=== PATIENT | male | born 1980 | race Caucasian/White ===

== ENCOUNTER 2019-09-10 14:14 | Inpatient (IN) | payer OTHER ==
[~2019-09-10] VITALS: Ht 190.5 cm; Wt 127.5 kg
[2019-09-10] MEDS ORDERED: DILTIAZEM HCL 5 MG/ML 5 ML VIAL IV STA ×3 (14:18→14:35)
[2019-09-10] MEDS ORDERED: ONDANSETRON HCL INJ 2MG/ML 2ML 2 MG/ML VIAL IV STA (14:18)
[2019-09-10] MEDS ORDERED: LORAZEPAM INJ 2 MG/ML VIAL ONE (14:22)
[2019-09-10] MEDS ORDERED: LACTATED RINGER'S 1,000 ML ONE (14:22)
[2019-09-10] MEDS ORDERED: LACTATED RINGER'S 1,000 ML IV ONE ×2 (14:30)
[2019-09-10] MEDS ORDERED: DILTIAZEM HCL 5 MG/ML 5 ML VIAL IV ONE (14:30)
[2019-09-10] MEDS ORDERED: LORAZEPAM INJ 2 MG/ML VIAL IV ONE ×4 (14:30→17:30)
[2019-09-10 14:53] LABS: INR 1.06; PROTHROMBIN TIME 14.3 seconds (11.9-14.5)
[2019-09-10 14:55] LABS: BILIRUBIN,URINE NEGATIVE (NEGATIVE); CLARITY,URINE CLEAR (CLEAR); COLOR,URINE YELLOW (YELLOW); KETONES,URINE NEGATIVE (NEGATIVE); LEUKOCYTE ESTERASE ,URINE NEGATIVE (NEGATIVE); NITRITE,URINE NEGATIVE (NEGATIVE); PROTEIN,URINE DIPSTICK 2+ (NEGATIVE); URINE UROBILINOGEN 0.2 mg/dL (0.2 - 1)
[2019-09-10] MEDS ORDERED: MULTIVITAMINS- 12 INJECTION 10 ML, FOLIC ACID MDV 5 MG, THIAMINE HCL INJ 100 MG in SODI... IV ONE (15:00)
[2019-09-10 15:02] LABS: ALANINE AMINOTRANSFERASE 62 IU/L (0-55); ALBUMIN 4.2 g/dL (3.5-5.0); ALKALINE PHOSPHATASE 75 IU/L (40-150); ANION GAP 27.2 mmol/L (8-16); BLOOD UREA NITROGEN 8 mg/dL (7-26); BUN/CREATININE RATIO 8 (6-25); CALCIUM 9.5 mg/dL (8.4-10.2); CARBON DIOXIDE 15 mmol/L (22-29); CHLORIDE 97 mmol/L (98-107); CREATININE, SERUM 0.95 mg/dL (0.72-1.25); EST GLOMERULAR FILTRATION RATE > 60 ML/MIN (60-); GLUCOSE 112 mg/dL (74-118); POTASSIUM 3.2 mmol/L (3.5-5.1); SODIUM 136 mmol/L (136-145)
[2019-09-10 15:03] LABS: BASOPHILS # (AUTO) 0.1 (0.0-0.1); BASOPHILS % 0.7 % (0.0-1.0); EOSINOPHILS # (AUTO) 0.1 (0.0-0.4); EOSINOPHILS % 0.7 % (0.0-6.0); HEMATOCRIT 47.1 % (38.2-49.6); HEMOGLOBIN 16.2 g/dL (14.0-18.0); LYMPHOCYTES # (AUTO) 3.9 (1.0-3.2); LYMPHOCYTES % 45.5 % (18.0-39.1); MEAN CORPUSCULAR HEMOGLOBIN 31.5 pg (28-32); MEAN CORPUSCULAR HGB CONC 34.4 g/dL (31-35); MEAN CORPUSCULAR VOLUME 91.5 fL (81-99); MONOCYTES # (AUTO) 1.2 (0.2-0.8); MONOCYTES % 14.3 % (4.4-11.3); NEUTROPHILS # (AUTO) 3.3 (2.1-6.9); NEUTROPHILS % 38.6 % (38.7-80.0); PLATELET COUNT 157 x10e3/uL (140-360); RED BLOOD COUNT 5.15 x10e6/uL (4.3-5.7); RED CELL DISTRIBUTION WIDTH 11.7 % (11.7-14.4)
[2019-09-10 15:14] LABS: BACTERIA,URINE FEW /HPF; EPITHELIAL CELLS,URINE FEW /LPF; RBC,URINE 0-5 /HPF (0-5); WBC,URINE (MAN) 0-5 /HPF (0-5)
--- NOTE | 2019-09-10 15:19 | Diagnostic Imaging Report ---
EXAMINATION: CHEST SINGLE (PORTABLE) COMPARISON: None INDICATION: Seizure ^AMS ^[id number] ^1455 ^Y DISCUSSION: Frontal view of the chest obtained at 1454 hours. HEART AND MEDIASTINUM: The cardiomediastinal silhouette is unremarkable. LINES: None. LUNGS: The lungs are well inflated and clear. No pneumonia or pulmonary edema. PLEURA: No pleural effusion or pneumothorax. BONES AND SOFT TISSUES: No focal osseous lesion. The soft tissues are normal. IMPRESSION: No acute cardiopulmonary disease. Signed by: Dr. Dharmesh Johnson MD on 09/10/2019 3:16 PM
[2019-09-10 15:21] LABS: THYROID STIMULATING HORMONE 2.042 uIU/mL (0.350-4.940)
--- NOTE | 2019-09-10 15:44 | Diagnostic Imaging Report ---
CT BRAIN WO HISTORY: 38-year-old male with altered mental status, tachycardia and suspected seizure episode COMPARISON: None. TECHNIQUE: Noncontrast axial scans were obtained from skull base to the vertex. Coronal and sagittal reconstructions obtained from the axial data. One or more of the following dose reduction techniques were used: Automated exposure control, adjustment of the mA and/or kV according to patient size, and/or utilization of iterative reconstruction technique. DISCUSSION: Scalp/Skull: Unremarkable. Brain sulci: Mild compensatory dilatation. Ventricles: Mild compensatory dilatation.. No hydrocephalus. Extra-axial spaces: No masses or fluid collections. Parenchyma: No abnormal densities. Mild generalized volume loss. No mass, hemorrhage, or large vascular territory acute infarct. Dural sinuses: No abnormal densities. Sellar/Suprasellar region: Intact. No masses. Skull base: Intact. Craniocervical junction: The vermis is hypoplastic in appearance with associated increased prominence of the posterior fossa at midline. Incidental findings: None. IMPRESSION: 1. No acute intracranial abnormalities. 2. Mild generalized volume loss. This preliminary report was issued by Dr. Salvador Perkins M.D. neuroradiology fellow at 1541 hours on 09/10/2019. Signed by: DR Darwin Mills M.D. on 09/11/2019 2:56 PM
[2019-09-10] MEDS: DILTIAZEM HCL 125 ML IV SCH (16:15)
[2019-09-10] MEDS ORDERED: SODIUM CHLORIDE 0.9% 1000ML 1,000 ML IV SCH (16:16)
--- OUTSIDE RECORDS SUMMARY | 2019-09-10 16:29 | XMS REPORT ---
Author Author [facility] Address Unknown Phone Unavailable Care Team Providers Care Curing Finisher Name Role Phone Freedom TRAYLOR Unavailable Unavailable Problems This patient has no known problems. Allergies, Adverse Reactions, Alerts This patient has no known allergies or adverse reactions. Medications This patient has no known medications. Results Test Description Test Time Test Comments Text Results Atomic Results Result Comments CHEST SINGLE (PORTABLE) 2019-09-10 15:15:00 [place] [address] Patient Name: ED WRIGHT MR #: [id number] : 1980 Age/Sex: 38/M Req #: [id number] Adm Physician: Ordered by: PAUL TRAYLOR MD Report #: [id number] Location: ER Room/Bed: Procedure: [id number] DX/CHEST SINGLE (PORTABLE) Exam Date: 09/10/19 Exam Time: 1455 REPORT STATUS: Signed EXAMINATION: CHEST SINGLE (PORTABLE) COMPAR TONJA: None INDICATION: Seizure AMS [id number] Y DISCUSSION: Frontal view of the chest obtained at 1454 hours. HEART AND MEDIASTINUM: The cardiomediastinal silhouette is unremarkable. LINES: None. LUNGS: The lungs are well inflated and clear. No pneumonia or pulmonary edema. PLEURA: No pleural effusion or pneumothorax. BONES AND SOFT TISSUES: No focal osseous lesion. The soft tissues are normal. IMPRESSION: No acute cardiopulmonary disease. Signed by: Dr. Valerie Johnson MD on 09/10/2019 3:16 PM Dictated By: VALERIE JOHNSON MD 15 Transcribed By: LAKHWINDER on 09/10/191515 COPY TO: PAUL TRAYLOR MD
[2019-09-10] MEDS ORDERED: ONDANSETRON HCL INJ 2MG/ML 2ML 2 MG/ML VIAL IV PRN (16:30)
[2019-09-10] MEDS ORDERED: POTASSIUM CHLORIDE 10MEQ EA PO ONE (17:00)
[2019-09-10] MEDS ORDERED: FOSPHENYTOIN 1,000 MG in SODIUM CHLORIDE 0.9% 50ML 50 ML IV ONE (17:00)
[2019-09-10] MEDS ORDERED: POTASSIUM CHLORIDE 20 MEQ TAB CR PO ONE (17:00)
[2019-09-10 17:20] VITALS: BP 135/102
[2019-09-10] MEDS: SOD CHL 0.45%/POT CHL 20MEQ 1,000 ML IV SCH (18:27)
[2019-09-10] MEDS ORDERED: DIGOXIN INJ 0.25 MG/ML 2 ML AMP IV ONE (18:30)
--- NOTE | 2019-09-10 18:58 | Consultation ---
DATE OF CONSULTATION: Pulmonary Critical Care Consultation CHIEF COMPLAINT: Tachycardia and agitation. HISTORY OF PRESENT ILLNESS: The patient is a 38-year-old man. He has a history of prior seizures. He also has a history of atrial fibrillation and prior alcohol withdrawal. Apparently, he has been drinking more than usual and had a seizure at the baseball game today. He came to the ER and was found to be tachycardic with atrial fibrillation. He was started on a diltiazem drip. He also received Ativan total of 12 mg. He was loaded with Dilantin as well. Head CT scan showed no acute abnormalities. The patient is now transferred to the intensive care unit. He is on a Cardizem drip and is anxious, but is oriented and coherent. PAST MEDICAL HISTORY: 1. Seizures. 2. History of alcohol withdrawal. 3. Atrial fibrillation. 4. No prior respiratory problems. PAST SURGICAL HISTORY: None. FAMILY HISTORY: Family history is noncontributory. ALLERGIES: THE PATIENT HAS NO KNOWN DRUG ALLERGIES. REVIEW OF SYSTEMS: There is no headache. He has no fevers. He is not having neck pain. There is no chest pain. He did note some tachycardia and palpitations. He notes some mild dyspnea. There is no abdominal pain. He has no nausea or vomiting. There is no leg edema. PHYSICAL EXAMINATION: VITAL SIGNS: The blood pressure is 147/89, saturation is 98%, and respiratory rate is 18. The heart rate is now 110-120, it is irregularly irregular. HEENT: Shows no facial swelling or erythema. CARDIAC: Reveals regular rate and rhythm with normal S1, S2. There are no murmurs or rubs. LUNGS: Auscultation of the lungs shows clear breath sounds bilaterally. There is no wheezing. ABDOMEN: Soft, nontender. There is no rebound or guarding. EXTREMITIES: Show no leg edema or calf tenderness. There is no cyanosis or clubbing. SKIN: Shows no rashes. NEUROLOGICAL: Shows no focal abnormalities. LABORATORY DATA: BUN to creatinine ratio is normal. Potassium is 3.2 and the carbon dioxide is 15. AST is 93 and the ALT is 62. Magnesium is 1.9. CBC is within normal limits. RADIOGRAPHIC DATA: CT scan of the head shows no acute changes. Chest x-ray shows no acute changes. IMPRESSION: 1. Alcohol withdrawal and impending delirium tremens. 2. Seizure disorder. 3. Hypokalemia. 4. Metabolic acidosis secondary to seizure. 5. Alcoholic hepatitis with elevated transaminases. 6. Atrial fibrillation. PLAN: 1. Continue Ativan as needed to control agitation and alcohol withdrawal. 2. Continue Cardizem drip. 3. Echocardiogram is pending. 4. The patient has been loaded with Dilantin. 5. Replete potassium. 6. Add thiamine and multivitamins. 7. Repeat electrolytes. Tripp Hussein MD [facility]/MODL /[id number]
[2019-09-10 19:00] VITALS: BP 140/85
[2019-09-10 19:45] LABS: ALANINE AMINOTRANSFERASE 55 IU/L (0-55); ALBUMIN 3.7 g/dL (3.5-5.0); ALKALINE PHOSPHATASE 65 IU/L (40-150); ANION GAP 13.4 mmol/L (8-16); BLOOD UREA NITROGEN 8 mg/dL (7-26); BUN/CREATININE RATIO 11 (6-25); CALCIUM 8.8 mg/dL (8.4-10.2); CARBON DIOXIDE 25 mmol/L (22-29); CHLORIDE 100 mmol/L (98-107); CREATININE, SERUM 0.76 mg/dL (0.72-1.25); EST GLOMERULAR FILTRATION RATE > 60 ML/MIN (60-); GLUCOSE 117 mg/dL (74-118); POTASSIUM 3.4 mmol/L (3.5-5.1); SODIUM 135 mmol/L (136-145)
[2019-09-10 20:00] VITALS: BP 150/133
[2019-09-10 21:00] VITALS: BP 142/91
[2019-09-10] MEDS: METOPROLOL TARTRATE 25 MG TAB PO SCH (21:04)
[2019-09-10 22:00] VITALS: BP 137/76
[2019-09-10 23:02] VITALS: BP 120/84
[2019-09-10] MEDS: LORAZEPAM 1 MG TAB PO SCH (23:21)
[2019-09-11] VITALS (27 sets, daily range): BP systolic 121–158; BP diastolic 83–118
[2019-09-11] MEDS ORDERED: SODIUM CHLORIDE 0.9% 100 ML ONE (04:12)
[2019-09-11] MEDS ORDERED: DILTIAZEM HCL VIAL 0 ML ONE (04:13)
[2019-09-11] MEDS ORDERED: DILTIAZEM HCL IV 5MG/ML 25 ML VIAL ONE (04:14)
[2019-09-11] MEDS: SOD CHL 0.45%/POT CHL 20MEQ 1,000 ML IV SCH ×2 (04:31→16:20)
[2019-09-11] MEDS: DILTIAZEM HCL 125 ML IV SCH ×5 (04:32→23:50)
[2019-09-11 04:58] LABS: BASOPHILS % 0.5 % (0.0-1.0); EOSINOPHILS % 0.7 % (0.0-6.0); HEMATOCRIT 45.4 % (38.2-49.6); LYMPHOCYTES # (AUTO) 1.4 (1.0-3.2); LYMPHOCYTES % 25.5 % (18.0-39.1); MEAN CORPUSCULAR HEMOGLOBIN 30.9 pg (28-32); MEAN CORPUSCULAR VOLUME 93.6 fL (81-99); MONOCYTES # (AUTO) 0.8 (0.2-0.8); MONOCYTES % 14.2 % (4.4-11.3); NEUTROPHILS # (AUTO) 3.2 (2.1-6.9); NEUTROPHILS % 58.7 % (38.7-80.0); PLATELET COUNT 119 x10e3/uL (140-360); RED BLOOD COUNT 4.85 x10e6/uL (4.3-5.7); RED CELL DISTRIBUTION WIDTH 11.9 % (11.7-14.4)
[2019-09-11 05:18] LABS: ANION GAP 15.8 mmol/L (8-16); BLOOD UREA NITROGEN 9 mg/dL (7-26); BUN/CREATININE RATIO 11 (6-25); CALCIUM 8.8 mg/dL (8.4-10.2); CARBON DIOXIDE 23 mmol/L (22-29); CHLORIDE 102 mmol/L (98-107); CREATININE, SERUM 0.81 mg/dL (0.72-1.25); EST GLOMERULAR FILTRATION RATE > 60 ML/MIN (60-); GLUCOSE 116 mg/dL (74-118); POTASSIUM 3.8 mmol/L (3.5-5.1); SODIUM 137 mmol/L (136-145)
[2019-09-11 06:46] LABS: PLATELET MORPHOLOGY COMMENT FEW LARGE
[2019-09-11] MEDS: LORAZEPAM 1 MG TAB PO SCH ×2 (08:10→20:02)
[2019-09-11] MEDS: METOPROLOL TARTRATE 25 MG TAB PO SCH ×2 (08:11→20:02)
[2019-09-11] MEDS: LORAZEPAM INJ 2 MG/ML VIAL IV PRN ×2 (08:24→15:30)
--- NOTE | 2019-09-11 08:50 | Progress Note ---
DATE: SUBJECTIVE: The patient has less agitation, but still has atrial fibrillation. He is still requiring Cardizem at 10 mg an hour. PHYSICAL EXAMINATION: VITAL SIGNS: The patient is afebrile. The blood pressure is 148/105, and the heart rate is 115. Respiratory rate is 22. HEENT: Shows no facial swelling or erythema. CARDIAC: Reveals an irregularly irregular rhythm with normal S1, S2. There are no murmurs or rubs heard. ABDOMEN: Soft, nontender. There is no rebound or guarding. There is no leg edema or calf tenderness. IMPRESSION: 1. Alcohol withdrawal and impending delirium tremens. 2. Atrial fibrillation with a rapid ventricular response. 3. Elevated transaminases, probably secondary to alcoholic hepatitis. PLAN: 1. Continue Ativan. 2. Continue Cardizem. 3. Cardiology evaluation. 4. Continue IV fluids. MD CIARAN Valentin/CHAZ /[id number]
[2019-09-11] MEDS: LISINOPRIL 2.5 MG TAB PO SCH (18:20)
[2019-09-11] MEDS: ENOXAPARIN SODIUM INJ 100 MG/ML SYR SC SCH (18:20)
--- NOTE | 2019-09-11 20:40 | Consultation ---
DATE OF CONSULTATION: 09/11/2019 Neurology Consult Note HISTORY OF PRESENT ILLNESS: Mr. Quintero is a 38-year-old right-hand dominant man with past medical history significant for atrial fibrillation, alcohol abuse, and prior seizures related to alcohol withdrawal, admitted to [facility] as an inpatient on September 10, 2019, following a single seizure and with alcohol withdrawal. On the day of admission, the patient experienced a seizure, which is described as follows: Mr. Quintero suddenly fell to the ground, unresponsive. He then developed generalized tonic-clonic activity with tongue biting. There was no bowel or bladder incontinence noted. The generalized tonic-clonic activity persisted for approximately one minute. This was followed by a postictal phase, which lasted for some minutes. Mr. Quintero has experienced generalized tonic-clonic seizures in the past (once in January 2018 and again in January 2019). Both seizures were attributed to alcohol withdrawal. Mr. Quintero reports drinking 24 to 36 ounce of beers per day for the past 9 years. Approximately one month ago, this was decreased to 6 to 9, 24 to 36 ounce of beers per day. Approximately 2 weeks ago, the patient's alcohol consumption was further decreased to 3, 24 to 36 ounce beers per day. On the day of admission, when the generalized seizure occurred, the patient had consumed only one beer approximately 30 to 40 minutes prior to the seizure. Mr. Quintero does not report a history of febrile seizures. There is no known family history of epilepsy. The patient does not report prior head trauma or meningitis/encephalitis. For each of his prior seizures, Mr. Quintero was hospitalized and underwent MRIs of the brain as well as EEGs. All studies were reportedly normal. REVIEW OF SYSTEMS: Confusion, seizures, agitation, tremulousness, and diaphoresis. Otherwise, a 12-point review of systems is negative. PAST MEDICAL HISTORY: Hypertension, atrial fibrillation, alcohol withdrawal seizures, and alcohol abuse. PAST SURGICAL HISTORY: None. PAST HOSPITALIZATIONS: Seizures/alcohol withdrawal. FAMILY MEDICAL HISTORY: Hypertension, diabetes mellitus, and depression. SOCIAL HISTORY: Mr. Quintero is . 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 Mr. Quintero's alcohol use is detailed in the history of present illness. The patient does not report current or prior recreational drug use. HOME MEDICATIONS: None. HOSPITAL MEDICATIONS: Diltiazem, Lovenox, lisinopril, Ativan, Lopressor, Zofran, and potassium chloride. ALLERGIES: NO KNOWN DRUG ALLERGIES. NO KNOWN FOOD ALLERGIES. NO KNOWN ALLERGIES TO LATEX. NO KNOWN ALLERGIES TO IODINE OR OTHER CONTRAST MATERIALS. PHYSICAL EXAMINATION: Vital Signs: Height 75 inches, weight 283 pounds, BMI 35.4 kg/m2, blood pressure 122/100 mmHg, pulse 130 beats per minute, respiratory rate 19 breaths per minute, and oxygen saturation 95% on 4 L by nasal cannula. GENERAL: The patient is awake and alert, diaphoretic, agitated. Obese. HEENT: Normocephalic and atraumatic. Pupils are equal, round, and sluggishly reactive to light. Moist mucous membranes. NECK: Supple. No appreciable thyromegaly. No appreciable carotid bruits. CARDIOVASCULAR: S1 and S2. Tachycardic. Irregular rhythm. No murmurs, rubs, or gallops. RESPIRATORY: Clear to auscultation bilaterally. No wheezes, rhonchi, or rales. EXTREMITIES: The skin is warm and dry. No clubbing, cyanosis, or edema. The posterior tibial and dorsalis pedis pulses are 2+ and symmetric. SKIN: The patient has a macular papular, slightly scaly rash affecting both legs. NEUROLOGIC: Memory/Attention: The patient is awake and alert, oriented to person, place, time, and situation. Cranial Nerves: Cranial nerve I - not tested. Cranial nerve II, III, IV, and - pupils are equal and round, react sluggishly to light (from 6 mm to 4 mm). Extraocular movements intact. No nystagmus. Cranial nerve V - sensation to light touch and pinprick is intact in the bilateral V1 through V3 distributions. Strength of the temporalis and masseter muscles is within normal limits. Cranial nerve VII - the face is symmetric as are all facial movements. Strength is within normal limits. Cranial nerve VIII - hearing is intact to finger rub bilaterally. Cranial nerve IX, X - the soft palate elevates equally and symmetrically. Cranial nerve XI - normal strength of the bilateral sternocleidomastoid and trapezius muscles. Cranial nerve XII - the tongue protrudes midline and moves symmetrically from [id number]. Strength: Bulk is normal. Strength is 5/5 in the bilateral deltoids, biceps, triceps, wrist flexors and extensors, finger flexors and extensors, intrinsic hand muscles, hip flexors, knee flexors and extensors, ankle dorsiflexion and plantar flexion, and intrinsic foot muscles. Tone is normal. DTRs: Deep tendon reflexes are 1+ and symmetric at the triceps, biceps, brachioradialis, and patellas. Deep tendon reflexes are absent and symmetric at the Achilles. Plantar responses are flexor bilaterally. Sensation: Sensation is intact to light touch and pinprick in both arms and both legs. Cerebellar: [id number] and heel-hamilton movements are significant for tremulousness. Gait: Deferred. Speech: Spontaneous speech is normal without appreciable dysarthria or aphasia. Repetition is intact. Involuntary movements: The patient appears tremulous. Pronator Drift: None. LABORATORY DATA: The most recent comprehensive metabolic panel is unremarkable. A liver function panel collected on September 10, 2019, is significant for a total bilirubin of 1.6, AST of 85, and globulin of 3.8. TSH 2.042. The CBC with differential and platelets reveals a white blood cell count of 5.48 with 58.7% neutrophils, 25.5% lymphocytes, 14.2% monocytes, 0.7% eosinophils, and 0.5% basophils. The hemoglobin and hematocrit are 15.0 and 45.4, respectively. The platelet count is 119. A coagulation profile is within normal limits. A urinalysis collected on September 10, 2019, was significant only for 2+ protein. DIAGNOSTIC STUDIES: Electrocardiogram 09/10/2019: Atrial fibrillation with rapid ventricular response at 166 beats per minute. Right axis deviation. Chest x- ray 09/10/2019: No acute cardiopulmonary disease. CT of the brain without contrast 09/10/2019: On my review, there is no evidence of recent or remote large territorial ischemia, hemorrhage, mass, or mass effect. There is mild diffuse cerebral atrophy with compensatory dilatation of the ventricles, more than expected for the patient's age. There is no evidence of migrational anomalies, cortical dysplasia, or mesial temporal sclerosis. There are no findings suggestive of chronic small vessel ischemic disease. Echocardiogram 09/10/2019: Ejection fraction 35% to 40%. Concentric left ventricular hypertrophy. Left ventricular enlargement. ASSESSMENT AND PLAN: Mr. Quintero is a 38-year-old right-hand dominant man with past medical history significant for alcoholism and prior seizures secondary to alcohol withdrawal, admitted to [facility] as an inpatient on 09/10/2019, status post a single generalized tonic-clonic seizure, atrial fibrillation with rapid ventricular response, and delirium tremens. Other than findings compatible with a diagnosis of delirium tremens, the patient's neurological examination is nonfocal. His laboratory data and other diagnostic studies have been reviewed and are documented above. Mr. Quintero's CT of the brain without contrast did not reveal a structural abnormality, which would predispose the patient towards seizures. Unfortunately, an EEG cannot be obtained, as the EEG machine is currently not operational. However, in my opinion, it is highly likely Mr. Quintero's recent generalized tonic-clonic seizure occurred as a result of alcohol withdrawal. Therefore, treatment with an antiepileptic medication is not indicated. Seizure precautions were discussed with the patient and his in the presence of the patient's nurse, Karissa Lopez RN. Those precautions are as follows: The patient should sleep 7 to 8 hours per night. No alcohol consumption. Avoid the use of stimulants and other medications/substances known to lower the seizure threshold. The patient should exercise caution in his activities. He should not bathe alone, swim alone, climb up or down ladders, or work at any height above ground. By [place] State Law, Mr. Quintero should not drive until he is seizure-free for 3 months.The patient was informed it is his responsibility to report his seizure to the Department of Public Safety. Defer treatment of the remaining medical comorbidities to the primary and other services following the patient. Thank you for this consultation. There are no other recommendations from the Neurology Service at this time. Please call again with any questions or concerns. TIME SPENT: 70 minutes. Octavia Banks MD [facility]/CHAZ /[id number] VASU
[2019-09-12] VITALS (23 sets, daily range): BP systolic 126–166; BP diastolic 80–123
--- NOTE | 2019-09-12 00:10 | Consultation ---
DATE OF CONSULTATION: 09/11/2019 Cardiology Consultation Thank you, Dr. Hussein for this cardiac consultation. I was asked to see this patient because the patient got atrial fibrillation. ADDITIONAL ADMITTING PHYSICIAN: DIAGNOSES: 1. Chronic atrial fibrillation with a rapid ventricular response. The patient has stopped all his medications. 2. Chronic alcoholism, now also the patient in the effect of alcohol. 3. Abnormal liver functions. 4. Obesity. Mr. Leon Argueta is a 38-year-old, obese gentleman admitted, what appears palpitation and also he knows that he drinks too much alcohol. He is drinking for more than 10 years and that is also one of the reason he is in the hospital. The patient is admission to different hospital in the past for atrial fibrillation and chronic alcoholism. The patient does not complain of chest pain or breathing problem at this time. The patient already started by Dr. Hussein on Cardizem and metoprolol. Heart is more or less come down to 110 per minute, but we will continue Cardizem 10 mg/hour. Blood pressure 110/80. The patient has no history of myocardial infarction or type 2 diabetes mellitus. Management. The patient is and has grown children. No surgeries. No allergies. Clinically, no evidence of acute congestive heart failure. The patient has 2+ pedal edema. Some varicose veins are noted in both the legs. EKG showed atrial fibrillation, nonspecific ST changes. Renal function is normal. Hemoglobin is normal. Platelets normal. At this time, we will continue metoprolol and Cardizem. Metoprolol p.o. and Cardizem IV fusion, add lisinopril 2.5 mg once a day and I am going to add Lovenox 1 mg/kg for 12 hours. Keep a watch on for any bleeding. The patient has no history of peptic ulcer disease or hemorrhoids. No GI bleed in the past. The patient's echocardiogram showed ejection fraction of 25%. No evidence of any pericardial effusion. The patient got mild to moderate LVH noted. At this time, I will continue to follow the patient. The patient is quite stable. Thank you again for this consultation. Prasanth Masters MD [facility]/MODL /[id number] MTDD
[2019-09-12] MEDS: SOD CHL 0.45%/POT CHL 20MEQ 1,000 ML IV SCH (02:00)
[2019-09-12 04:54] LABS: BASOPHILS % 0.4 % (0.0-1.0); EOSINOPHILS % 0.5 % (0.0-6.0); HEMATOCRIT 45.8 % (38.2-49.6); HEMOGLOBIN 15.9 g/dL (14.0-18.0); LYMPHOCYTES # (AUTO) 2.1 (1.0-3.2); LYMPHOCYTES % 24.4 % (18.0-39.1); MEAN CORPUSCULAR HEMOGLOBIN 31.9 pg (28-32); MEAN CORPUSCULAR HGB CONC 34.7 g/dL (31-35); MONOCYTES # (AUTO) 1.3 (0.2-0.8); MONOCYTES % 15.3 % (4.4-11.3); NEUTROPHILS % 58.9 % (38.7-80.0); PLATELET COUNT 124 x10e3/uL (140-360); RED BLOOD COUNT 4.98 x10e6/uL (4.3-5.7); RED CELL DISTRIBUTION WIDTH 11.7 % (11.7-14.4)
[2019-09-12 05:16] LABS: ALANINE AMINOTRANSFERASE 55 IU/L (0-55); ALBUMIN 3.8 g/dL (3.5-5.0); ALKALINE PHOSPHATASE 74 IU/L (40-150); ANION GAP 15.5 mmol/L (8-16); BLOOD UREA NITROGEN 9 mg/dL (7-26); BUN/CREATININE RATIO 11 (6-25); CALCIUM 9.3 mg/dL (8.4-10.2); CARBON DIOXIDE 23 mmol/L (22-29); CHLORIDE 96 mmol/L (98-107); CREATININE, SERUM 0.83 mg/dL (0.72-1.25); EST GLOMERULAR FILTRATION RATE > 60 ML/MIN (60-); GLUCOSE 96 mg/dL (74-118); POTASSIUM 3.5 mmol/L (3.5-5.1); SODIUM 131 mmol/L (136-145)
[2019-09-12] MEDS: ENOXAPARIN SODIUM INJ 100 MG/ML SYR SC SCH ×2 (05:40→18:00)
[2019-09-12 05:50] LABS: PLATELET ESTIMATE MODERATELY DECREASED
[2019-09-12 06:12] LABS: PLATELET MORPHOLOGY COMMENT FEW LARGE
[2019-09-12] MEDS: LORAZEPAM 1 MG TAB PO SCH ×2 (08:17→21:06)
[2019-09-12] MEDS: METOPROLOL TARTRATE 25 MG TAB PO SCH ×2 (08:18→21:06)
[2019-09-12] MEDS: LISINOPRIL 2.5 MG TAB PO SCH (08:18)
[2019-09-12] MEDS ORDERED: LYRICA75 MG PO (10:26)
[2019-09-12] MEDS ORDERED: CHLORDIAZEPOXID25 MG PO (10:32)
[2019-09-12] MEDS ORDERED: VIAGRA100 MG PO (10:32)
[2019-09-12] MEDS ORDERED: METOPROLOL TART50 MG PO (10:32)
[2019-09-12] MEDS ORDERED: CYMBALTA60 MG PO (10:32)
[2019-09-12] MEDS ORDERED: BUPROPION HCL150 M2 PO (10:35)
[2019-09-12] MEDS ORDERED: LEVOCETIRIZINE D5 MG PO (10:35)
[2019-09-12] MEDS: AMIODARONE HCL 200 MG TAB PO SCH (15:05)
--- NOTE | 2019-09-12 15:50 | Progress Note ---
DATE: SUBJECTIVE: The patient's IV came out. He was evaluated by Cardiology and found to have some decreased ejection fraction on his echo. He remains in atrial fibrillation with a rapid ventricular rate. PHYSICAL EXAMINATION: VITAL SIGNS: The blood pressure is 134/88 and pulse is 126. Saturation is 97%. HEENT: Shows no facial swelling or erythema. CARDIAC: Reveals an irregularly irregular rhythm with normal S1 and S2. LUNGS: Auscultation of lungs reveals clear breath sounds bilaterally. There is no wheezing. ABDOMEN: Soft and nontender. There is no rebound or guarding. EXTREMITIES: Shows no leg edema. IMPRESSION: 1. Alcohol withdrawal with impending delirium tremens. 2. Atrial fibrillation with rapid ventricular response. 3. Alcoholic hepatitis. 4. Seizure disorder. 5. Systolic congestive heart failure. 6. Systolic cardiomyopathy. PLAN: 1. Stop IV fluids. 2. Continue Cardizem IV. 3. Increase metoprolol to 50 mg b.i.d. and begin amiodarone for rate control. 4. Continue to monitor liver function tests. 5. Benzodiazepines as needed. MD CIARAN Valentin/CHAZ /[id number]
[2019-09-13] VITALS (11 sets, daily range): BP systolic 117–155; BP diastolic 69–109
[2019-09-13] MEDS: ENOXAPARIN SODIUM INJ 100 MG/ML SYR SC SCH (05:07)
[2019-09-13 05:23] LABS: BASOPHILS % 0.4 % (0.0-1.0); EOSINOPHILS # (AUTO) 0.1 (0.0-0.4); HEMATOCRIT 48.2 % (38.2-49.6); HEMOGLOBIN 16.3 g/dL (14.0-18.0); LYMPHOCYTES # (AUTO) 1.9 (1.0-3.2); LYMPHOCYTES % 24.8 % (18.0-39.1); MEAN CORPUSCULAR HEMOGLOBIN 31.6 pg (28-32); MEAN CORPUSCULAR HGB CONC 33.8 g/dL (31-35); MEAN CORPUSCULAR VOLUME 93.4 fL (81-99); MONOCYTES # (AUTO) 1.4 (0.2-0.8); MONOCYTES % 17.8 % (4.4-11.3); NEUTROPHILS # (AUTO) 4.3 (2.1-6.9); NEUTROPHILS % 55.6 % (38.7-80.0); PLATELET COUNT 136 x10e3/uL (140-360); RED BLOOD COUNT 5.16 x10e6/uL (4.3-5.7); RED CELL DISTRIBUTION WIDTH 11.6 % (11.7-14.4)
[2019-09-13 05:46] LABS: ALANINE AMINOTRANSFERASE 46 IU/L (0-55); ALBUMIN 3.9 g/dL (3.5-5.0); ALKALINE PHOSPHATASE 77 IU/L (40-150); ANION GAP 16.7 mmol/L (8-16); BLOOD UREA NITROGEN 14 mg/dL (7-26); BUN/CREATININE RATIO 14 (6-25); CALCIUM 9.7 mg/dL (8.4-10.2); CARBON DIOXIDE 23 mmol/L (22-29); CHLORIDE 99 mmol/L (98-107); CREATININE, SERUM 1.01 mg/dL (0.72-1.25); EST GLOMERULAR FILTRATION RATE > 60 ML/MIN (60-); GLUCOSE 92 mg/dL (74-118); POTASSIUM 3.7 mmol/L (3.5-5.1); SODIUM 135 mmol/L (136-145)
[2019-09-13 07:36] LABS: PLATELET ESTIMATE SLIGHTLY DECREASED; PLATELET MORPHOLOGY COMMENT FEW LARGE; RBC MORPHOLOGY COMMENT NORMAL
[2019-09-13] MEDS ORDERED: POTASSIUM CHLORIDE 20 MEQ TAB CR PO SCH (09:00)
[2019-09-13] MEDS: LISINOPRIL 2.5 MG TAB PO SCH (09:00)
[2019-09-13] MEDS: AMIODARONE HCL 200 MG TAB PO SCH (09:00)
[2019-09-13] MEDS: LORAZEPAM 1 MG TAB PO SCH (09:00)
[2019-09-13] MEDS: METOPROLOL TARTRATE 25 MG TAB PO SCH (09:00)
--- NOTE | 2019-09-13 12:46 | Progress Note ---
DATE: SUBJECTIVE: The patient feels better. He has less agitation and less nervousness. He is still in atrial fibrillation and has a rate of 100-110, on amiodarone twice a day and metoprolol. PHYSICAL EXAMINATION: VITAL SIGNS: The patient is afebrile. Vital signs are stable except for a fast heart rate. HEART: There is an irregularly irregular rhythm. There is a normal S1 and S2. There are no murmurs or rubs heard. PULMONARY: Auscultation of lungs show clear breath sounds bilaterally. There is no wheezing. ABDOMEN: Soft and nontender. There is no rebound or guarding. IMPRESSION: 1. Atrial fibrillation with rapid ventricular response. 2. Systolic cardiomyopathy. 3. Alcoholic hepatitis. 4. Thrombocytopenia. 5. Seizure disorder. PLAN: 1. Continue oral metoprolol and amiodarone. 2. Discuss further management with Cardiology. 3. Continue Ativan 1 mg twice a day. MD CIARAN Valentin/CHAZ /[id number]
--- NOTE | 2019-09-13 15:16 | Progress Note ---
DATE: Cardiology Progress Note SUBJECTIVE: The patient is seen in the room. The patient is awake and alert. The patient will go home today. I discussed with Dr. Hussein also. DIAGNOSES: 1. Chronic alcoholism. 2. Congestive heart failure and cardiomyopathy. 3. History of seizure disorder. 4. Obesity. At this time, the patient came with shortness of breath. The patient treated by Dr. Hussein and primary physician for heart failure. The patient had echo, EF is low less than 30% and the patient was told of his condition. The patient also had atrial fibrillation at this time. The patient converted to sinus rhythm intermittently. The patient is to go home on Eliquis 2.5 mg p.o. b.i.d., Cardizem, lisinopril 5 mg once a day, and metoprolol 25 mg p.o. b.i.d. and the patient need to continue all medications given by primary physician, Dr. Hussein. I told him he has to follow up with Dr. Hussein's office, primary physician and from a cardiac point with my office too. I discussed with him future course of his cardiomyopathy and also he is to abstain from drinking alcohol and stop it and also he has to lose weight. I discussed with him about the prevention of the cardiac failure and also heart disease and he said he will come and follow up in my office next week. Thank you, Dr. Hussein for this consultation. MD BASILIO Rodriguez/CHAZ /[id number]
--- NOTE | 2019-09-13 18:32 | Discharge Summary ---
ADMISSION DIAGNOSES: EtOH withdrawal with seizures, atrial fibrillation with rapid ventricular response, history of seizures, obesity with a BMI of 35.4, and hypokalemia. DISCHARGE DIAGNOSES: EtOH withdrawal with seizures, atrial fibrillation with rapid ventricular response, history of seizures, obesity with a BMI of 35.4, and hypokalemia. HISTORY: EtOH abuse, seizures, atrial fibrillation, and hypertension. SURGICAL HISTORY: None. FAMILY HISTORY: The patient's mom has diabetes. SOCIAL HISTORY: The patient admits to alcohol abuse and using dip tobacco. HOSPITAL COURSE: A 38-year-old male admitted after having a seizure at a baseball game. He says it happens when he tries to quit drinking. He had one beer that day. He usually drinks up to a 24-pack or more per day. His last seizure was in January. He does not take any home medicines for his seizures or atrial fibrillation or blood pressure. On admission, the patient was found to be in atrial fibrillation with RVR. He was given Cardizem push and started on a drip per Cardio. Lorazepam was p.r.n. and the patient was given Celebrex in the ER as well as a banana bag. No seizures were noted during hospitalization. Neurology was consulted and recommended the patient not to drive for 3 months from his last seizure. The patient was weaned off the Cardizem drip and was given prescriptions for lisinopril, metoprolol, Eliquis, and Ativan. He is cleared to discharge home by Critical Care and Cardiology as well as Neurology. The patient understands discharge instructions and agrees to plan. He was advised to quit drinking alcohol and follow up very closely with primary care and Cardiology very closely. Vital signs are stable. The patient is afebrile. Dictated by Claudia Matute NP MD JUAN Dale/MODMichael /[id number]
== END 2019-09-13 13:15 | disposition home or self-care (01) | DRG 897 ==
LOC: ER 14:14 → ERHOLD 16:14 → ICU 17:20
PROVIDERS: ADMIT Internal Medicine; ATTEND Internal Medicine
DX: F10.231 Alcohol dependence with withdrawal delirium (principal); E87.2 Acidosis; I48.20 Chronic atrial fibrillation, unspecified; I50.22 Chronic systolic (congestive) heart failure; G40.89 Other seizures; E87.6 Hypokalemia; K70.10 Alcoholic hepatitis without ascites; E66.9 Obesity, unspecified; F17.220 Nicotine dependence, chewing tobacco, uncomplicated; Z68.35 Body mass index [BMI] 35.0-35.9, adult; I11.0 Hypertensive heart disease with heart failure; R56.9 Unspecified convulsions; F10.288 Alcohol dependence with other alcohol-induced disorder
CPT/HCPCS: 36415; 70450; 71045; 80048; 80053; 80076; 81001; 83735; 84443; 85025; 85610; 93005; 93306; 99285; J1160; J1650; J2060; J2405; J3411; J7030; J7050; J7121; Q2009